=== PATIENT | female | born 1975 | race Caucasian/White ===

== ENCOUNTER 2021-11-11 14:27 | Outpatient (CLI) | payer BC, SELFPAY ==
--- NOTE | 2021-11-11 14:40 | CRLHL7_ITS ---
For Patients: As a result of the Century Cures Act, medical imaging exams and procedure reports are released immediately into your electronic medical record. You may view this report before your referring provider. If you have questions, please contact your health care provider. BILATERAL MAMMOGRAM WITH COMPUTER-AIDED DETECTION AND TOMOSYNTHESIS TECHNIQUE: CC and MLO views were obtained. These mammographic images have been obtained using full-field digital technique. These mammographic images were interpreted with the benefit of computer-aided detection. Breast Tomosynthesis was used in this interpretation. COMPARISON FILM: 11/05/2020, 07/15/2019, 06/07/2018. FINDINGS: There are scattered areas of fibroglandular density IMPRESSION: There is no radiographic evidence for malignancy. ASSESSMENT: BI-RADS Category 1: Negative RECOMMENDATION: Routine screening mammogram in 1 year. A lay language report of this examination will be provided to the patient. Solo Mckeon M.D. Diagnostic Radiologist [email or web address] JUNIOR/nery gabriel/Dictated by: Solo Mckeon MD @ 11/14/2021 8:33:00 AM (Electronically Signed)
== END 2021-11-11 14:28 | disposition home or self-care (01) ==
LOC: MAMMO 14:31
PROVIDERS: Visit Provider Physician Assistant
DX: Z12.31 Encounter for screening mammogram for malignant neoplasm of breast (principal)
CPT/HCPCS: 77063; 77067

== ENCOUNTER 2022-11-24 12:47 | Outpatient (CLI) | payer BC, SELFPAY ==
--- NOTE | 2022-11-24 13:00 | CRLHL7_ITS ---
For Patients: As a result of the Century Cures Act, medical imaging exams and procedure reports are released immediately into your electronic medical record. You may view this report before your referring provider. If you have questions, please contact your health care provider. BILATERAL SCREENING MAMMOGRAM WITH COMPUTER-AIDED DETECTION AND TOMOSYNTHESIS TECHNIQUE: CC and MLO views were obtained. These mammographic images have been obtained using full-field digital technique. These mammographic images were interpreted with the benefit of computer-aided detection. Breast tomosynthesis was used in this interpretation. COMPARISON FILM: 11/11/21, 11/05/20, 07/15/19. FINDINGS: There are scattered areas of fibroglandular density. IMPRESSION: There is no radiographic evidence for malignancy. ASSESSMENT: BI-RADS Category 2: Benign RECOMMENDATION: Routine screening mammogram in 1 year. A lay language report of this examination will be provided to the patient. SOLO MIRANDA M.D. Diagnostic Radiologist [email or web address] JUNIOR/rafa Transcribed: 11/27/2022, 1:[address]/Dictated by: Solo Miranda MD @ 11/27/2022 8:22:00 AM (Electronically Signed)
== END 2022-11-24 12:48 | disposition home or self-care (01) ==
LOC: MAMMO 12:48
PROVIDERS: Visit Provider Physician Assistant
DX: Z12.31 Encounter for screening mammogram for malignant neoplasm of breast (principal)
CPT/HCPCS: 77063; 77067

== ENCOUNTER 2022-12-21 08:04 | Outpatient (CLI) | payer BC, SELFPAY | END 2022-12-21 08:05 | disposition home or self-care (01) | LOC: NFLDREF 12-23 13:14 | PROVIDERS: PCP Emergency Medicine; Visit Provider Emergency Medicine | DX: Z00.00 Encounter for general adult medical examination without abnormal findings (principal); E78.5 Hyperlipidemia, unspecified; R73.01 Impaired fasting glucose | CPT/HCPCS: 80048; 80061 ==

== ENCOUNTER 2022-12-28 15:43 | Outpatient (CLI) | payer BC, SELFPAY | END 2022-12-28 15:44 | disposition home or self-care (01) | LOC: LKVREF 15:43 | PROVIDERS: PCP Emergency Medicine; Visit Provider Emergency Medicine | DX: Z00.00 Encounter for general adult medical examination without abnormal findings (principal); E78.5 Hyperlipidemia, unspecified; R73.01 Impaired fasting glucose | CPT/HCPCS: 84443 ==

== ENCOUNTER 2023-03-09 06:59 | Outpatient (CLI) | payer BC, SELFPAY ==
--- NOTE | 2023-03-09 08:44 | W.ANESCHARGE ---
Anesthesia Charges Start Date/Time Anesthesia Start Date: 03/09/23 Anesthesia Start Time: 08:04 Stop Date/Time Anesthesia Stop Date: 03/09/23 Anesthesia Stop Time: 08:42
--- NOTE | 2023-03-09 08:57 | W.ANESCHARGE ---
Anesthesia Charges Start Date/Time Anesthesia Start Date: 03/09/23 Anesthesia Start Time: 08:04 Stop Date/Time Anesthesia Stop Date: 03/09/23 Anesthesia Stop Time: 08:42
== END 2023-03-09 07:00 | disposition home or self-care (01) ==
PROVIDERS: PCP Emergency Medicine; Visit Provider Internal Medicine
DX: Z12.11 Encounter for screening for malignant neoplasm of colon (principal)
CPT/HCPCS: 45378; 811; 812; J2704

== ENCOUNTER 2023-04-04 08:15 | Outpatient (CLI) | payer BC, SELFPAY | END 2023-04-04 08:16 | disposition home or self-care (01) | LOC: NFLDREF 04-05 10:17 | PROVIDERS: PCP Emergency Medicine; Referring Provider Emergency Medicine; Visit Provider Emergency Medicine | DX: E78.5 Hyperlipidemia, unspecified (principal); Z15.89 Genetic susceptibility to other disease; Z13.9 Encounter for screening, unspecified | CPT/HCPCS: 80061; 82607; 82746 ==

== ENCOUNTER 2024-02-08 13:01 | Outpatient (CLI) | payer BC, SELFPAY ==
--- OUTSIDE RECORDS SUMMARY | 2024-02-08 13:04 | XMS_ITS | Clinical Summary ---
Author Organization [employer] [facility] Address [place], [place] [address] Care Team Providers Care Veterinary Meat Inspector Name Role Phone Osmar Mustafa MD Primary Care Provider [phone] Social History Tobacco Use Types Packs/Day Years Used Date Smoking Tobacco: Never Assessed Sex and Gender Information Value Date Recorded Sex Assigned at Not on file Gender Identity Not on file Sexual Orientation Not on file Plan of Treatment Not on file Care Teams Veterinary Meat Inspector Relationship Specialty Start Date End Date Osmar Mustafa MD [address] [place] [address] PCP - General Surgery - Orthopedics 04/19/20
--- OUTSIDE RECORDS SUMMARY | 2024-02-08 13:04 | XMS_ITS | Data Portability ---
Author Organization [place] [facility] Address [address] [place] [address] Assessment Encounter Date Assessment Date Assessment LastModified by Organization Details LastModified Time 12/04/2017 12/04/2017 I spent a considerable amount of time discussing the diagnoses, treatment options, risks and benefits of various treatment options, prognosis and the need for compliance. I also reviewed patients systemic health history, social and personal history and current medications and the complete documentation of the same is available for review in the patient's electronic health record. Based on the evaluation today, I do consider patient's symptoms to be consistent for a Temporomandibular joint disorder diagnosis. Contributing factors identified and discussed include oral parafunctional habits, postural factors, coping with elevated stress. A panoramic radiograph was obtained in the office today and finding on the radiograph was discussed with the patient. This screening imaging revealed Bilateral TMJ condyles appearing WNL. Overall, the dento-alveolar tissue appeared WNL. I reviewed some self care strategies with the patient today. This included the use of moist-heat therapy on a regular basis, eating a soft diet and chewing bilaterally simultaneously. the technique in keeping the jaw relaxed at all times with the teeth apart and tongue resting on the roof of the mouth was demonstrated and discussed. Patient was also educated on the significance of compliance to self-care today. I recommended evaluation and treatment with a physical therapist to improve pain-free range of motion and function. Physical therapy strategies of exercises and modalities and the value of those were discussed with the patient. Fabrication of a Mandibular aozb-ffqmbefasm-eyu l appliance to address patient's diagnoses would be considered as a part of the treatment plan. The goals with the use of an intra-oral appliance was discussed with the patient today. I consider stress to be an important contributing factor to the patient's ongoing symptoms. Total visit time 45 minutes. I spent 35 minutes on counselling and co-ordination of care. Not available 12/04/2017 16:27:17 12/21/2017 12/21/2017 Symptoms are consistent with TMD diagnosis. Patient is low complexity with 2 personal factors/comorbiditi es affecting the plan of care, low complexity decision making and an evolving clinical presentation. Examination yields 2 affected structures, participation restrictions and/or functional limitations. The patient will benefit from PT to decrease pain and increase function with eating. Contributing factors include muscle guarding, oral habits, stress , anxiety and posture. Treatment will include exercises to release muscle tension and increase strength and stability. Modalities to be used may include manual therapy, ultrasound and electrical stimulation. Frequency will be 1x/2 weeks for 6-8 weeks, tapering as able for a total of 6-8 visits over 3 months. Short term goals (to be met in 2 weeks): *Improve patient's awareness of muscle tension and muscle guarding habits to decrease pain *Improve patient's awareness of neutral head, neck and jaw position to improve posture *Improve patient's awareness of proper sleep positioning and ergonomics *Decrease pain level by 50% *[place] with HEP and self care strategies to manage symptoms alf goals (to be met in 3 months) *Neutral head, neck and scapular posture 80% of the time *Neutral jaw posture 80% of the time *Decrease pain level by 80% *[place] with HEP and self care strategies to manage symptoms *Pain free chewing with moderately hard diet 80% of the time [email or web address] Not available 12/21/2017 13:26:39 12/26/2017 12/26/2017 The oral-applian ce fit and occlusion was adjusted today. The risks and benefits of using the appliance was reviewed with the patient. The patient was asked to not use the splint unless it is routinely checked by a dentist specialist. Splint care instructions were reviewed with the patient. Not available 12/28/2017 10:19:54 01/18/2018 01/18/2018 I reinforced the self-care strategies and encouraged compliance with those. Splint fit was reviewed and Adjustments were made to the splint to improve fit and occlusal comfort. The patient does report some initially improvement in symptoms. I discussed the need to return to care after PT visits in about 6-8 weeks. Total visit time 20 minutes. I spent 15 minutes on counselling and co-ordination of care. Not available 01/19/2018 07:58:20 Plan of Treatment Reminders Order Date Submit Date Provider Last Modified By Organization Details Last Modified Time Details Appointments None recorded. Lab None recorded. Referral physical therapist referral 2017 [address], [place], [address], 8 14:50:00 Procedures None recorded. Surgeries None recorded. Imaging XR, orthopantog jacky 2017 [address] [place], [facility] [address], [place], [address], 8 16:28:03 Medication Orders None recorded. Patient TargetsNo targets recorded. Patient Instructions Encounter Date Encounter Id Patient Instructions Last Modified By Organization Details Last Modified Time 12/04/2017 [id number] Self Care for TMD Not availab le 12/04/2017 14:50:00 oral appliance preparation* Not available 12/04/2017 16:28:03 12/21/2017 [id number] Plan: Medicare requires a director outcomes or CONTAINER REPAIRER to authorize our plan of care. If you agree with the plan as outlined above, please sign, date and fax back to [phone]. Thank you. Primary MD signature: Date: [email or web address] Not available 12/21/2017 12:32:20 Reason for Referral Physical Therapist Referral for Arthralgia of temporomandibular joint Referring Physician: Javier Stewart, Pain Management, Encounter Date: 12/04/2017 Results Created Date Observation Date Name Description Value Unit Range Abnormal Flag Note LastModifiedBy Organization Detail LastModifiedTime 12/05/19 18 XR, ortho panto gram No observ ation record ed. Not Available 2017 15:42:05 Result Notes None recorded. Problems Name Problem SNOMED Code Status Onset Date Resolution Date Notes Provider Name and Address Organization Details Recorded Time Arthralgia of temporomandibu lar joint 51071422 Active 2017 [facility] 8 14:49:34 Myofascial pain 826725319 Active 2017 [facility] 8 14:49:57 Problem Notes None recorded. Procedures Surgical History Date Name Laterality Status Provider Name and Address Organization Details Recorded Time 8 Oral appliance completed Bridget Page [facility] 12/26/2017 16:41:38 8 [address]046 PT Eval - Low Complexity completed JEN Shanks [address], [place], [address], [facility] 12/21/2017 13:19:24 8 62828: Ultrasound (1:1) completed JEN Shanks [address] [place], [place] [address] 12/21/2017 13:20:27 8 51393: Therapeutic Exercise completed JEN Shanks [address] [address], [facility] 12/21/2017 12:32:21 8 92105: Manual Therapy completed JEN Shanks [address], [place], [address] 12/21/2017 13:20:06 Imaging Results Imaging Date Name Status LastModified by Organization Details LastModified Time 12/04/2017 XR, orthopantogram completed Inform ation not available 12/24/2017 15:42:05 Procedure Notes None recorded. Medical Equipment None Reported. Allergies Allergen ID Allergen Name Allergen Category Reaction Reaction Severity Criticality Documentation Date Start Date Code Code System Note Provider Name and Address Organization Details Recorded Time 50992 amoxicill in medicatio n Not available Not available Not available 12/04/2017 723 [facility]Norm [facility]i [facility]ul [facility] 8 14:47:49 Medications Not known to be on any medication Vitals Date Recorded Body height Body mass index (BMI) Body weight Provider Name and Address Organization Details Last Updated DateTime 12/04/2017 167.64 cm 26.6 kg/m2 28074.74 g Justo Rhodesppard [facility] 12/04/2017 14:06:55 Date Recorded Body height Body mass index (BMI) Body weight Provider Name and Address Organization Details Last Updated DateTime 12/26/2017 167.64 cm 26.6 kg/m2 53392.74 g Bridget Lazaroer [facility] 12/26/2017 16:36:18 Date Recorded Body height Body mass index (BMI) Body weight Provider Name and Address Organization Details Last Updated DateTime 01/18/2018 167.64 cm 26.6 kg/m2 67125.74 g Justo Ruiz [facility] 01/18/2018 16:31:34 Social History Question Answer Notes LastModified by Organizat ion Details LastModified Time Tobacco Smoking Status Never Smoker Bridget Camilo [facility] 12/26/2017 16:40:08 What Is Your Level Of Alcohol Consumption? Occasional Rare Information not available 12/26/2017 What Is Your Level Of Caffeine Consumption? Occasional Rare Information not available 12/26/2017 What Was The Date Of Your Most Recent Tobacco Screening? 01/18/2018 Information n ot available 11/21/2018 General Stress Level Medium [email or web address] Information not available 01/18/2018 Sex: Unknown Functional Status None recorded. Mental Status None recorded. Family History Relationship Description Onset Age of this Age Resolved Age Notes LastModified by Organization Details LastModified Time Father No current problems or disability [email or web address] Not available 12/26 16:39:48 Mother No current problems or disability [email or web address] Not available 12/26 16:39:48 Medical History No medical history recorded. Gynecological HistoryNo gynecological history recorded. Obstetrics History GPAL:G 0 P 0 0 0 0 Past Encounters Encounter ID Performer Location Encounter Start Date Encounter Closed Date Diagnosis/Indication Diagnosis SNOMED-CT Code Diagnosis ICD10 Code [id number] Moni Vipul DDS [place] [address] [place] [address] 12/04/2017 13:58:54 12/04/2017 16:33:51 Arthralgia of temporomandibular joint 52312604 M26.621 Myofascial pain 96055468 9 M79.1 [id number] Cara Umana, [address] [place] [address] [place] [address] 12/21/2017 12:23:01 12/21/2017 13:15:55 Myofascial pain 313182520 M79.1 [id number] Moni Vipul DDS [place] [address] [place] [address] 12/26/2017 16:33:04 12/28/2017 12:38:38 Myofascial pain 996377053 M79.1 Arthralgia of temporomandibular joint 44459006 M26.621 [id number] Moni Vipul DDS [place] [address] [place] [address] 01/18/2018 16:27:24 01/21/2018 10:07:43 Arthralgia of temporomandibular joint 28038576 M26.621 Myofascial pain 94550097 9 M79.1 Health Concerns Section Related Observation LastModified by Organization Detai ls LastModified Time None Recorded Concern Status LastModified by Organization Details LastModified Time None Recorded Advance Directives Directive None Recorded Payers Encounter Date Sequence Insurance Name Policy Number Policy Pres[place] Covered Member ID Pres[place] Member ID Guarantor Name 12/04/2017 1 [employer] [id number] Karmyn Reese [id number] Kamryn Reese 12/21/2017 1 [employer] [id number] Kamryn Reese [id number] Kamryn Reese 12/26/2017 1 [facility] [id number] Kamryn Reese [id number] Kamryn Reese 01/18/2018 1 [facility] [id number] Kamryn Reese [id number] Kamryn Reese Notes Date Note Type Note Provider Name and Address Organization Details Recorded Time 12/04/2017 text/html HPI Notes: Praveen nt reports jaw pain on the right-side , which startedweeks ago. The pain is located in the pre-auricular region. Patient reports the severity of pain as 8 on a scale of 0-10 and describes the quality of the pain assharp, dull ache, . The pain is episodic. Associated symptoms include ear pain-occastionally. Contextual factors include N/A. Aggravating factors include talking, eating, clenching and grinding, . Patient has tried ice packs, tylenol to alleviate symptoms, which has not been effective. Past treatment includes splint therapy from [facility]. Moni Matthew DDS [facility] 12/04/2017 16:28:15 12/21/2017 text/html HPI Notes: Jaw p ain Reported by patient. Onset: abrupt; October 2017 Location: right; masseter; preauricular Quality: dull; aching Severity: pain level up to 4/10; initial pain was severe Duration and frequency intermittent ; improving Context: clenching; bruxism; stress; anxiety Aggravating/contribu tion factors: stress; anxiety; Oral habits; chewy foods Alleviating Factors: ice Associated Symptoms: no jaw clicking; no jaw popping; no jaw locking Patient presents today for PT evaluation regarding right sided jaw pain. Symptoms began with stress and anxiety. Functional limitations and participation restrictions include eating some foods. Personal factors and/or comorbidities affecting the plan of care include ongoing high stress and anxiety. Contributing factors: *Clenching *Bruxism *Leaning on chin *Unilateral chewing-left *High stress level-ongoing *High anxiety level-not on medication *Sleep position sides *Work ergonomicsfair Cara Umana, JEN [address] [address], [place], [address], [facility] 12/21/2017 13:27:23 12/26/2017 text/html HPI Notes: Praveen bain presents today for insertion of a maxillary stabilization oral appliance. They note no changes in symptoms which are documented in the patient history of present illness. (S)he describes compliance with home self care as previously recommended. Patient had a PT appointment with CAPO Peguero DDS [facility] 12/28/2017 10:20:16 01/18/2018 text/html HPI Notes: Praveen bain reports that the jaw pain, located on the has Improved since the previous visit. Aggravating factors include teeth clenching .Alleviating factors include splint therapy, PT, relaxation.Patient is currently engaged in treatments including self-care & PT. Patient has seen the physical therapist 1 times.Patient reports that splint doesnt fit well, small chip in model, patient is wondering if splint was made with the chip in it CAPO Matos DDS [facility] 01/19/2018 07:58:41 OBGyn Episode No OBEpisode recorded.
--- NOTE | 2024-02-08 13:20 | CRLHL7_ITS ---
For Patients: As a result of the Cures Act, medical imaging exams and procedure reports are released immediately into your electronic medical record. You may view this report before your referring provider. If you have questions, please contact your health care provider. BILATERAL SCREENING MAMMOGRAM WITH COMPUTER-AIDED DETECTION AND TOMOSYNTHESIS TECHNIQUE: CC and MLO views were obtained. These mammographic images have been obtained using full-field digital technique. These mammographic images were interpreted with the benefit of computer-aided detection. Breast Tomosynthesis was used in this interpretation. COMPARISON FILM: 11/24/22, 11/11/21, 11/05/20. FINDINGS: There are scattered areas of fibroglandular density IMPRESSION: There is no radiographic evidence for malignancy. ASSESSMENT: BI-RADS Category 1: Negative RECOMMENDATION: Routine screening mammogram in 1 year. A lay language report of this examination will be provided to the patient. Solo Mckeon M.D. Diagnostic Radiologist [email or web address] JUNIOR/nery Transcribed: 1:42 p.anna gabriel/Dictated by: Solo Mckeon MD @ 02/18/2024 9:23:00 AM (Electronically Signed)
== END 2024-02-08 13:02 | disposition home or self-care (01) ==
LOC: MAMMO 13:02
PROVIDERS: PCP Emergency Medicine; Visit Provider Emergency Medicine
DX: Z12.31 Encounter for screening mammogram for malignant neoplasm of breast (principal)
CPT/HCPCS: 77063; 77067

== ENCOUNTER 2024-08-18 13:00 | Outpatient (CLI) | payer BC, SELFPAY | END 2024-08-18 13:01 | disposition home or self-care (01) | LOC: LKVREF 13:00 | PROVIDERS: PCP Emergency Medicine; Visit Provider Physician Assistant Medical | DX: E78.5 Hyperlipidemia, unspecified (principal); Z15.89 Genetic susceptibility to other disease; Z13.79 Encounter for other screening for genetic and chromosomal anomalies | CPT/HCPCS: 80053; 80061; 83090 ==